=== PATIENT | female | born 1990 | race Caucasian/White ===

== ENCOUNTER 2017-03-01 10:38 | Emergency (ER) | payer OTHER ==
[~2017-03-01] VITALS: Ht 167.6 cm; Wt 60.7 kg
[~2017-03-01 10:38] MED LIST: AUGMENTIN875 MG PO
[2017-03-01 12:34] LABS: HEMATOCRIT 40.6 % (36.0-46.0); HEMOGLOBIN 13.5 G/DL (11.9-15.5); MCH 30.4 PG (29.0-34.0); MCHC 33.3 G/DL (30.0-36.0); MCV 91.4 FL (83-99); PLATELET COUNT 209 K/uL (156-360); RBC DIS.WIDTH-CV 12.2 % (11.8-14.6); RBC DIS.WIDTH-SD 40.7 % (39-53); RED BLOOD COUNT 4.44 M/uL (3.80-5.20); WHITE BLOOD COUNT 5.3 K/uL (4.1-10.2)
[2017-03-01 12:42] LABS: ALBUMIN 4.2 g/dL (3.2-4.8)
[2017-03-01 12:43] LABS: CHLORIDE 105 mEq/L (99-109); POTASSIUM 3.8 mEq/L (3.7-5.4); SODIUM 137 mEq/L (136-147)
[2017-03-01 12:45] LABS: GLUCOSE 96 mg/dL (70-99); TOTAL PROTEIN 6.9 g/dL (6.4-8.3)
[2017-03-01 12:47] LABS: TOTAL BILIRUBIN 0.7 mg/dL (0.0-1.0)
[2017-03-01 12:48] LABS: ALKALINE PHOSPHATASE 50 IU/L (3-129)
[2017-03-01 12:49] LABS: CREATININE 0.7 mg/dL (0.6-1.3); GFR ESTIMATE (CALCULATED) > 59 mL/min/
[2017-03-01 12:50] LABS: AST (GOT) 22 IU/L (2-34); UREA NITROGEN (BUN) 12 mg/dL (9-23)
[2017-03-01 12:51] LABS: ALT (GPT) 17 IU/L (3-49)
[2017-03-01 12:52] LABS: LIPASE 7 U/L (1.0-51.0)
[2017-03-01 12:57] LABS: QUANTITATIVE HCG < 4.0 MIU/ML
[2017-03-01] MEDS ORDERED: NEXIUM40 MG PO (14:39)
[2017-03-01] MEDS ORDERED: BENTYL20 MG PO (14:39)
[2017-03-01 15:11] LABS: APPEARANCE CLEAR ((CLEAR)); BILIRUBIN NEGATIVE; BLOOD MODERATE; COLOR YELLOW ((YELLOW)); GLUCOSE (STRIP) NEGATIVE; KETONES 20; LEUKOCYTES NEGATIVE; NITRITE NEGATIVE; PROTEIN (STRIP) NEGATIVE; SPECIFIC GRAVITY 1.017 (1.000-1.030); UROBILINOGEN 0.2 MG/DL (0.2-1.0)
[2017-03-01 15:39] LABS: BACTERIA NONE SEEN /HPF; EPITHELIAL CELLS RARE /HPF; MUCUS 1+ /LPF; RED BLOOD CELLS 30-40 /HPF (0-5); WHITE BLOOD CELLS 0-5 /HPF (0-5)
[2017-03-01 16:06] VITALS: BP 126/78
== END 2017-03-01 16:09 | disposition home or self-care (01) ==
LOC: EME 10:38
PROVIDERS: Nurse Practitioner Family
DX: R10.13 Epigastric pain (principal); M54.9 Dorsalgia, unspecified; M25.511 Pain in right shoulder; R19.7 Diarrhea, unspecified; R11.2 Nausea with vomiting, unspecified
CPT/HCPCS: 76705; 80053; 81003; 83690; 84702; 85027; 99281; 99283